=== PATIENT | male | born 1985 | race Caucasian/White ===

== ENCOUNTER 2021-12-01 10:06 | Emergency (ER) | payer MEDICAID, SELFPAY ==
[2021-12-01 10:57] VITALS: BP 136/75; PULSE 53; RESP 15; TEMP 36.7; O2SAT 100; BMI 26.8
--- NOTE | 2021-12-01 11:14 | USR_ITS ---
PROCEDURE INFORMATION: Exam: US Duplex Left Lower Extremity Veins, Limited Exam date and time: 12/01/2021 11:28 AM Age: 36 years old Clinical indication: Pain; Leg, lower; Left; Additional info: Dvt TECHNIQUE: Imaging protocol: Real-time Duplex ultrasound of the Left Lower Extremity with 2-D rodriguez scale, color Doppler flow and spectral waveform analysis with image documentation. Limited exam focused on the left lower extremity veins. COMPARISON: No relevant prior studies available. FINDINGS: Left deep veins: Unremarkable. The common femoral, femoral, proximal profunda femoral and popliteal veins are patent without thrombus. Normal Doppler waveforms. Normal compressibility and/or augmentation response. Left superficial veins: Unremarkable. Saphenofemoral junction is patent without thrombus. Soft tissues: Unremarkable. US/CV venous duplex [facility] [id number] IMPRESSION: No evidence of deep vein thrombosis.
--- NOTE | 2021-12-01 11:15 | ED_ITS ---
HPI - Extremity Problem General: Chief complaint: Extremity Problem,Nontraumatic Stated complaint: left leg pain Time Seen by Provider: 12/01/21 11:10 History of Present Illness: 36-year-old presents with left lower extremity pain. States this been ongoing for a week. States that he has aching pain from the calf down. Denies any focal numbness weakness or tingling. Denies any fever or rash. Does state that recently had some blisters on his left foot treated with antibiotic but that area started bothering him. Denies any warmth or fever. Denies any chest pain or shortness of breath. Review of Systems Narrative: - CONSTITUTIONAL: Denies weight loss, fever and chills. - HEENT: Denies changes in vision and hearing. - RESPIRATORY: Denies SOB and cough. - CV: Denies palpitations and CP. - GI: Denies abdominal pain, nausea, vomiting and diarrhea. - : Denies dysuria and urinary frequency. - MSK: Denies myalgia and joint pain. - SKIN: Denies rash and pruritus. - NEUROLOGICAL: Denies headache, weakness, numbness and syncope. - PSYCHIATRIC: Denies suicidal ideation [facility] ED [facility]: Social History Smoking and tobacco status: current every day smoker Physical Exam Narrative: EXAM NARRATIVE: - GENERAL: Alert and oriented x 3. No acute distress. Well-nourished. - EYES: EOMI. Anicteric. - HENT: Atraumatic, no C-spine tenderness. Moist mucous membranes. No scleral icterus. No cervical lymphadenopathy. - LUNGS: Clear to auscultation bilaterally. No accessory muscle use. Equal lung sounds bilaterally. No respiratory distress. - CARDIOVASCULAR: Regular rate and rhythm. No murmur. No JVD. - ABDOMEN: Soft, non-tender and non-distended. Negative CVA tenderness bilaterally, no rebound or guarding, negative Burkett sign. No palpable masses. - EXTREMITIES: No edema. Tenderness to left calf. There are healing blisters on the left foot. No crepitus. No warmth or erythema. Extremities ne urovascularly intact. - SKIN: No rashes or lesions. Warm. - NEUROLOGIC: No meningismus or focal neurological deficits. CN II-XII grossly intact. - PSYCHIATRIC: Cooperative. Appropriate mood and affect. Course Vital Signs: Vital signs: Vital Signs Temperature 98.0 F 12/01/21 10:57 Pulse Rate 56 L 12/01/21 11:16 Respiratory Rate 16 12/01/21 11:16 Blood Pressure 141/72 12/01/21 11:16 Pulse Oximetry 100 12/01/21 11:16 MDM - Extremity (Nontraumatic) Medical Decision Making 36-year-old presents with left lower extremity pain. Exam there is no swelling. There are healing blisters on his foot from previous infection for which he is taking Augmentin. However there is no crepitus or signs of deep tissue infection. Ultrasound does not reveal any sign of DVT. Extremity is neurovascularly intact. He denies any chest pain or shortness of breath to suggest PE. At this time I believe patient would be safe for discharge and outpatient follow-up. Return precautions provided. Plan was reviewed with the patient who expressed understanding. Questions answered. Patient will follow up with PCP. Patient discharged in stable condition. Lab Data Radiology Impressions Venous Duplex 12/01/21 11:14 IMPRESSION: No evidence of deep vein thrombosis. Discharge Plan Discharge Patient Disposition: Home Clinical Impression: Acute leg pain Condition: Stable Prescriptions: No Action amoxicillin-pot clavulanate 875-125 mg tablet 1 tab PO BID 10 Days Qty: 20 0RF ciprofloxacin HCl 500 mg tablet 500 mg PO Q12H 10 Days Qty: 20 0RF Discharge Orders: Discharge ED (Routine); Ordered 12/01/21 Ordered By: Byron Partida Patient Instructions: Leg Pain (ED), Opioid Safety Coding Level of Care Code ED Bankman for Ricardo Bush
[2021-12-01 11:16] VITALS: BP 141/72; PULSE 56; RESP 16; O2SAT 100
[2021-12-01] MEDS: acetaminophen 500 mg Tablet PO (11:21)
[2021-12-01 12:16] VITALS: BP 141/72; PULSE 56; RESP 16; O2SAT 100
== END 2021-12-01 12:17 | disposition home or self-care (01) ==
PROVIDERS: Emergency Provider Emergency Medicine
DX: M79.605 Pain in left leg (principal); F17.210 Nicotine dependence, cigarettes, uncomplicated
CPT/HCPCS: 93971; 99284

== ENCOUNTER 2021-12-10 13:44 | Inpatient (IN) | payer MEDICAID, SELFPAY ==
[2021-12-10 13:49] VITALS: BP 158/74; PULSE 67; RESP 16; TEMP 37.1; O2SAT 99; BMI 26.3
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
[2021-12-10 15:44] LABS: Amphetamines Screen Urine Negative (Negative); Barbiturates Screen Urine Negative (Negative); Benzodiazepines Screen Urine Negative (Negative); Cocaine Screen Urine Negative (Negative); Opiate Screen Urine Negative (Negative); PCP Screen Urine Negative (Negative); THC Screen Urine Negative (Negative)
[2021-12-10 16:33] LABS: Basophils # 0.1 10^3/uL (0.0-0.1); Basophils % 0.9 %; Eosinophils # 0.7 10^3/uL (0.0-0.8); Eosinophils % 6.5 %; Hemoglobin 14.5 g/dL (11.7-16.6); Lymphocytes # 2.8 10^3/uL (0.8-4.8); Lymphocytes % 28.2 %; Mean Corpuscular Hemoglobin 31.2 pg (28.0-34.0); Mean Corpuscular Volume 94.6 fl (80-94); Mean Platelet Volume 12.1 fL (7.4-10.4); Monocytes # 0.9 10^3/uL (0.2-0.9); Monocytes % 8.7 %; Neutrophils # 5.52 10^3/uL (1.8-7.7); Neutrophils % 55.2 %; Nucleated Red Blood Cells % 0 %; Platelet Count 220 10^3/cmm (130-400); Red Blood Count 4.65 10^6/uL (4.1-5.3); Red Cell Distribution Width 13.5 % (12.1-15.1)
[2021-12-10 16:43] LABS: Alanine Aminotransferase 67 U/L (0-41); Alkaline Phosphatase 63 IU/L (40-130); Anion Gap 14.5 (5-19); Aspartate Amino Transferase 32 U/L (0-40); Blood Urea Nitrogen 15 mg/dL (6-20); Calcium 8.7 mg/dL (8.5-10.5); Carbon Dioxide 26 mmol/L (22-29); Chloride 102 mmol/L (98-107); Globulin 2.7 g/dL (1.3-4.6); Glomerular Filtration Rate 74.9 mL/min (90-130); Glucose 97 mg/dL (65-115); Osmolality Calculated 287 mOsm/kg (285-295); Potassium 4.5 mmol/L (3.5-5.1); Sodium 138 mmol/L (136-145); Total Bilirubin 0.3 mg/dL (0.15-1.2); Total Protein 6.7 g/dL (6.6-8.7)
[2021-12-10 16:44] LABS: Acetaminophen < 5.0 ug/mL (10-30); Alcohol Level < 10 mg/dL (0-10); Salicylate < 0.3 mg/dL (3-10)
[2021-12-10 17:52] VITALS: BP 131/66; PULSE 62; RESP 16; TEMP 36.7; O2SAT 97
[2021-12-10 18:21] VITALS: BP 155/73; PULSE 70; RESP 16; TEMP 36.7; O2SAT 94
[2021-12-10 19:59] VITALS: BP 156/70; PULSE 66; RESP 20; TEMP 36.5; O2SAT 95
[2021-12-10] MEDS: trazodone 100 mg Tablet PO ×2 (21:51→23:13)
[2021-12-10] MEDS: propranolol 20 mg Tablet PO (21:51)
[2021-12-10] MEDS: buprenorphine-naloxone 4-1 mg Film 0.5 EACH SUBLINGUAL (21:53)
[2021-12-10 22:00] VITALS: BP 156/70; PULSE 66; RESP 20; TEMP 36.5; O2SAT 95
[2021-12-11 06:00] VITALS: BP 146/90; PULSE 61; RESP 20; TEMP 36.9
[2021-12-11] MEDS: lisinopril 20 mg Tablet 40 MG PO (08:24)
[2021-12-11] MEDS: nicotine 2 mg Gum BUCCAL ×2 (08:24→19:44)
[2021-12-11] MEDS: buPROPion XL (24 HR) 300 mg Tablet PO (08:24)
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
[2021-12-11 14:00] VITALS: BP 120/72; PULSE 60; RESP 16; TEMP 36.4; O2SAT 97
[2021-12-11] MEDS: buprenorphine-naloxone 4-1 mg Film 2 EACH SUBLINGUAL (17:05)
[2021-12-11 18:39] VITALS: BP 127/77; PULSE 57; RESP 15; TEMP 36.8; O2SAT 99
[2021-12-11] MEDS: trazodone 100 mg Tablet PO (20:20)
[2021-12-11] MEDS: quetiapine 100 mg Tablet PO (20:21)
[2021-12-12 06:00] VITALS: BP 118/71; PULSE 71; RESP 16; TEMP 36.6; O2SAT 97
[2021-12-12] MEDS: buPROPion XL (24 HR) 300 mg Tablet PO (08:40)
[2021-12-12] MEDS: lisinopril 20 mg Tablet 40 MG PO (08:40)
[2021-12-12] MEDS: buprenorphine-naloxone 4-1 mg Film 2 EACH SUBLINGUAL ×2 (08:41→18:19)
[2021-12-12] MEDS: nicotine 2 mg Gum BUCCAL ×3 (08:42→20:55)
--- NOTE | 2021-12-12 11:26 | W.PM.NPUPNS ---
Subjective NPU Subjective: Patient is 36 year old male with polysubstance abuse including opioids and methamphetamine use admitted after increased irritability, suicidal ideation, anxiety and depressed mood directly from [facility]. The patient reports some depressed mood still but reports improved mood and decreased irritability and improvement in stomach pain with the resumption of Suboxone to 12mg yesterday. Patient had reported average dose of suboxone used at home prior to entry in program was 16-24mg/day and it was reduced to 4mg/day. Patient reports still some sleep continuity disruption. He continues to remain irritable on the milieu with peers and staff. Mental Status Exam MSE Comments: Pleasant cooperative male, appeared his stated age, Mood: depressed Affect: restricted in range, thought process: linear and logical, Alert and oriented to person, place and time. He denied suicidal thoughts with no active plan he denied any homicidal ideation. He did not appear to be responding to internal stimuli. There is no clear evidence of delusional thinking. His attention appeared fair. his concentration was adequate. His insight was limited. his judgment remained poor. His impulse control was poor. Vitals/I&O/Wt Last Vital Signs Temp 98.1 F 12/12/21 19:40 Pulse 71 12/12/21 19:40 Resp 16 12/12/21 19:40 BP 113/88 12/12/21 19:40 Pulse Ox 96 12/12/21 19:40 O2 Del Method 12/12/21 19:40 Data NPU : 12/10/21 16:16 12/10/21 16:16 A&P Assessment and plan (1) Major depressive disorder, recurrent: Status: Acute (2) Anxiety: Status: Acute (3) Suicidal ideation: Status: Acute (4) Opioid dependence: Status: Acute (5) Methamphetamine abuse: Status: Acute Plan The patient is a 36-year-old white male with a history of polysubstance abuse who has been in a intensive rehabilitation facility [facility] but had a significant reduction in his Suboxone over a short period of time leading to increased dysphoria and the emergence of increased agitation and depression. 1. TO-15 on milieu 2. Increase seroquel 200mg at night as adjunct with wellbutrin xl (moved to am) for targeting depression 3. Suboxone 16mg/day 4. Plan to direct transfer back to [facility] when stabilized. Involuntary Hold Information 96 Hour Hold: 96 Hour Involuntary Admission: No Attestations NPU Medical Necessity Statement*: The patient will require psychiatric hospitalization expected to be more than 2 midnights with the likely stay to be approximately 2 to 4 days. 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
[2021-12-12 13:50] VITALS: BP 144/79; PULSE 63; RESP 16; TEMP 36.7; O2SAT 99
[2021-12-12 19:40] VITALS: BP 113/88; PULSE 71; RESP 16; TEMP 36.7; O2SAT 96
[2021-12-12] MEDS: quetiapine 100 mg Tablet 200 MG PO (20:53)
[2021-12-13] MEDS: ibuprofen 600 mg Tablet PO (00:28)
--- NOTE | 2021-12-13 04:01 | PC.NURSE ---
Pt has been in the day room most of this 7a-7p shift. He has been awake and sleeping off/on. Stares at the opposite wall in the day room more than watching TV. About 2144, Pt expressed his belieft that this filing writer and another Pt were talking about me while in the day room. He was advised by the other Pt and myself that we were not talking about him. About 2229, Pt stated to this filing writer that he wanted to file a grievence against this filing writer you are talking about me every time I come up here and you walk away. Pt was redirected that this filing writer was indeed not talking to or about him. Pt sits with a vacant stare while in the day room, believes this filing writer and another Pt are talking about, he is probably responding to internal stimuli. Pt stated around 2329 that he no longer believed this filing writer was talking about him.
--- NOTE | 2021-12-13 05:11 | PC.NURSE ---
New order for Motrin 600mg. Use and effect explained to Pt who said he understood and had used it previously. A note was left for day shift report that Pt is c/o continual pain to R ear for which he had requested Motrin. Should be evaluated for possible early infection which Pt has previously had.
[2021-12-13 06:00] VITALS: RESP 16
[2021-12-13] MEDS: lisinopril 20 mg Tablet 40 MG PO (08:16)
[2021-12-13] MEDS: buPROPion XL (24 HR) 300 mg Tablet PO (08:16)
[2021-12-13] MEDS: buprenorphine-naloxone 4-1 mg Film 2 EACH SUBLINGUAL ×2 (08:16→17:45)
[2021-12-13] MEDS: nicotine 2 mg Gum BUCCAL ×2 (08:46→18:23)
[2021-12-13] MEDS: hyDROXYzine 25 mg Capsule 50 MG PO (10:30)
--- NOTE | 2021-12-13 10:31 | PC.NURSE ---
Rash Patient noted to has slight rash to anterior chest and neck. rash is flat and not raised. Rash is not on face, arms or legs. No difficulty breathing or swallowing, no distress. Patient given hydroxyzine. Will continue to assess in 30 minutes.
--- NOTE | 2021-12-13 12:01 | P.NPUPN_ITS ---
Subjective NPU Subjective: Patient is 36 year old male with polysubstance abuse including opioids and methamphetamine use admitted after increased irritability, suicidal ideation, anxiety and depressed mood directly from [facility] [place]. The patient reports no withdrawal symptoms. He reports improved sleep stating that he was able to sleep throughout the night without interruption. Patient denies feelings of hopelessness. He has been compliant on the milieu> Patient reports no suicidal thoughts or homicidal thoughts. He reports being motivated to return to focusing on addiction. Mental Status Exam MSE Comments: Pleasant cooperative male, appeared his stated age, Mood: better Affect: restricted in range but brighter today thought process: linear and logical. Alert and oriented to person, place and time. He denied suicidal thoughts with no active plan. he denied any homicidal ideation. He did not appear to be responding to internal stimuli. There is no clear evidence of delusional thinking. His attention appeared fair. his concentration was adequate. His insight was limited. his judgment remained improving. His impulse control was improving as well. Vitals/I&O/Wt Last Vital Signs Temp 98.4 F 12/13/21 14:00 Pulse 75 12/13/21 14:00 Resp 12 12/13/21 14:00 BP 158/87 12/13/21 14:00 Pulse Ox 97 12/13/21 14:00 O2 Del Method 12/13/21 14:00 Data NPU : 12/10/21 16:16 12/10/21 16:16 A&P Assessment and plan (1) Major depressive disorder, recurrent: Status: Acute (2) Anxiety: Status: Acute (3) Suicidal ideation: Status: Acute (4) Opioid dependence: Status: Acute (5) Methamphetamine abuse: Status: Acute Plan The patient is a 36-year-old white male with a history of polysubstance abuse who has been in a intensive rehabilitation facility [facility] but had a significant reduction in his Suboxone over a short period of time leading to increased dysphoria and the emergence of increased agitation and depression. 1. TO-15 on milieu 2. Continue seroquel 200mg at night as adjunct with wellbutrin xl 300mg (moved to am) for targeting depression. 3. Suboxone 16mg/day 4. Plan to direct transfer back to [facility] when stabilized. Involuntary Hold Information 96 Hour Hold: 96 Hour Involuntary Admission: No Attestations NPU Medical Necessity Statement*: The patient will require psychiatric hospitalization expected to be more than 2 midnights with the likely stay to be approximately 1-2 days. 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
[2021-12-13] MEDS: diphenhydrAMINE 25 mg Capsule PO ×2 (13:33→17:45)
[2021-12-13 14:00] VITALS: BP 158/87; PULSE 75; RESP 12; TEMP 36.9; O2SAT 97
--- NOTE | 2021-12-13 14:41 | PM.CONSULT ---
Providers/Reason For Consult Consulting Physician/Specialty*: Randall Stanton Reason for Consult*: Rash Requesting Physician: Dr. Smith Attending Physician: Juan Smith MD History of Present Illness History of Present Illness Xavier Santos is a 36 year old male admitted to the neuropsychiatric unit for suicidal ideation and substance use. He was at [facility] most recently. He reports he had a rash that started while at [facility]. It is all over his body, chest, back, neck. It is more sparing of his face, legs, feet. He reports it itches. It has been going on for over 5 days. He states he recently took amoxicillin, and Bactrim for concerns of an infection in his feet. However, it appears Cipro and Augmentin were given on [address] Lopez. He denies any fever currently. He reports a rash is perhaps a little bit better than it was. Review of Systems General: Reports: 10 or more systems reviewed and unremarkable except in HPI and below Const: Denies: fever(s) or chills Eyes: Denies: change in vision ENMT: Denies: throat pain Card: Denies: chest pain Resp: Denies: dyspnea GI: Denies: abdominal pain : Denies: flank pain Musc: Denies: neck pain Skin/Breast: Reports: rash and pruritus Neuro: Denies: headache(s) Psych: Denies: anxiety or depression Endo: Denies: polyuria Kt/Lymph: Denies: easy bruising All/Imm: Denies: urticaria Medications/Allergies Home Medications Medication Instructions Recorded Confirmed Last Taken Type buprenorphine 2 mg-naloxone 0.5 mg 1 tab sublingual BID 12/10/21 12/10/21 Unknown History sublingual tablet bupropion HCl 300 mg 24 hr tablet, 300 mg PO BEDTIME 12/10/21 12/10/21 Unknown History extended release lisinopril 40 mg tablet 40 mg PO DAILY 12/10/21 12/10/21 Unknown History propranolol 20 mg tablet 20 mg PO TID PRN Anxiety 12/10/21 12/10/21 12/09/21 History trazodone 100 mg tablet 100 - 200 mg PO BEDTIME PRN Sleep 12/10/21 12/10/21 12/09/21 History Allergies Allergy/AdvReac Type Severity Reaction Status Date / Time Penicillins Allergy Mild ALGY-Rash Verified 12/13/21 14:53 bacrrim Allergy Mild ALGY-Rash Uncoded 12/13/21 14:53 Current Medications Generic Name Dose Route Start Last Admin Trade Name Jonatan PRN Reason Stop Dose Admin Buprenorphine/Naloxone 2 each 12/11/21 18:00 12/13/21 08:16 Buprenorphine-Naloxone 4-1 Mg Film SUBLINGUAL 2 each BID TATIANA Administration Bupropion HCl 300 mg 12/11/21 09:00 12/13/21 08:16 Bupropion Xl (24 Hr) 300 Mg Tablet PO 300 mg DAILY TATIANA Administration Diphenhydramine HCl 25 mg 12/13/21 13:19 12/13/21 13:33 Diphenhydramine 25 Mg Capsule PO 25 mg Q4H PRN Administration ITCHING Hydroxyzine Pamoate 50 mg 12/10/21 18:21 12/13/21 10:30 Hydroxyzine 25 Mg Capsule PO 50 mg Q6H PRN Administration ANXIETY Ibuprofen 600 mg 12/13/21 00:15 12/13/21 00:28 Ibuprofen 600 Mg Tablet PO 600 mg Q6H PRN Administration MODERATE PAIN Lisinopril 40 mg 12/11/21 09:00 12/13/21 08:16 Lisinopril 20 Mg Tablet PO 40 mg DAILY TATIANA Administration Nicotine Polacrilex 2 mg 12/10/21 18:21 12/13/21 08:46 Nicotine 2 Mg Gum BUCCAL 2 mg Q2H PRN Administration NICOTINE WITHDRAWAL Propranolol HCl 20 mg 12/10/21 20:18 12/10/21 21:51 Propranolol 20 Mg Tablet PO 20 mg TID PRN Administration Anxiety Quetiapine Fumarate 200 mg 12/12/21 21:00 12/12/21 20:53 Quetiapine 100 Mg Tablet PO 200 mg BEDTIME TATIANA Administration Trazodone HCl 100 mg 12/10/21 20:18 12/11/21 20:20 Trazodone 100 Mg Tablet PO 100 mg BEDTIME PRN Administration Sleep PFSH Acute PFSH: Medical History (Updated 12/13/21 @ 14:50 by Randall Thapa MD) Hypertension Methamphetamine abuse Opioid dependence Social History (Updated 12/13/21 @ 14:49 by Randall Thapa MD) Smoking and tobacco status: current every day smoker Alcohol intake: current Substance/Drug Use: current Vitals/I&O/Wt Last Vital Signs Temp 98.4 F 12/13/21 14:00 Pulse 75 12/13/21 14:00 Resp 12 12/13/21 14:00 BP 158/87 12/13/21 14:00 Pulse Ox 97 12/13/21 14:00 O2 Del Method 12/13/21 14:00 Physical Exam Narrative: General exam is a white male, no distress Skin demonstrates erythematous papules with some evidence of excoriation most prominent on his anterior chest and abdomen. They are present to a smaller degree on his back, face, neck. Lower legs are mainly spared. There are no lesions in the intertriginous areas, feet, ankles. A blister that was present on the right heel appears to be without infection. Neuro no obvious focal deficits HEENT: Atraumatic normocephalic oropharynx clear Neck is supple no lymphadenopathy thyromegaly Cardiovascular regular rate and rhythm without murmur Lungs clear Abdomen is soft with positive bowel sounds. No obvious organomegaly exam is deferred Extremities no cyanosis clubbing or edema. Data : 12/10/21 16:16 12/10/21 16:16 A&P Assessment and plan (1) Rash: This is most likely a drug eruption. He is most recently been on Augmentin and Cipro. He may have been on Bactrim. At this point we will list allergies to penicillin and sulfa as it is the safest thing to do in this scenario. Doubt fluoroquinolone allergy. Benadryl as needed for itching Triamcinolone twice daily to areas of rash that have most significant reaction There is no evidence of Melo-Tobi reaction Status: Acute Plan Avoid penicillin products and sulfa products currently. Benadryl, triamcinolone as above as needed Please call for any worsening of the rash, need for follow-up visitation. Thank you for this consultation. Consult Attestations Medical Necessity Statement: As per primary Coding Level of Care Code Acute Destination Coordinator for Ricardo Bush Diagnoses Rash R21
[2021-12-13] MEDS: triamcinolone 0.1% cream 15 gm 1 APPLIC TOPICAL (15:03)
--- NOTE | 2021-12-13 17:45 | PC.NURSE ---
PRN BENADRYL 25 MG GIVEN PO PER PT C/O ITCHING/RASH
[2021-12-13 20:37] VITALS: BP 157/75; PULSE 93; RESP 18; O2SAT 97
[2021-12-13] MEDS: quetiapine 100 mg Tablet 200 MG PO (20:55)
[2021-12-14 05:48] VITALS: BP 127/73; PULSE 75; RESP 16; TEMP 36.6; O2SAT 98
[2021-12-14] MEDS: buprenorphine-naloxone 4-1 mg Film 2 EACH SUBLINGUAL (08:25)
[2021-12-14] MEDS: lisinopril 20 mg Tablet 40 MG PO (08:25)
[2021-12-14] MEDS: buPROPion XL (24 HR) 300 mg Tablet PO (08:25)
[2021-12-14] MEDS: triamcinolone 0.1% cream 15 gm 1 APPLIC TOPICAL (08:26)
[2021-12-14] MEDS: ondansetron 4 MG Tablet PO (08:27)
[2021-12-14] MEDS: nicotine 2 mg Gum BUCCAL (08:30)
[2021-12-14 09:05] VITALS: BP 127/73; PULSE 75; RESP 16; TEMP 36.6; O2SAT 98
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
== END 2021-12-14 11:05 | disposition home or self-care (01) | DRG 885 ==
LOC: ER 14:46 → NP 18:03
PROVIDERS: Admitting Provider Psychiatry & Neurology Psychiatry; Emergency Provider Physician Assistant; Visit Provider Psychiatry & Neurology Psychiatry
DX: F33.9 Major depressive disorder, recurrent, unspecified (principal); R45.851 Suicidal ideations; F11.23 Opioid dependence with withdrawal; F41.9 Anxiety disorder, unspecified; F15.10 Other stimulant abuse, uncomplicated; F19.10 Other psychoactive substance abuse, uncomplicated; R45.4 Irritability and anger; R45.1 Restlessness and agitation; L27.0 Generalized skin eruption due to drugs and medicaments taken internally; T36.8X5A Adverse effect of other systemic antibiotics, initial encounter; T36.0X5A Adverse effect of penicillins, initial encounter; T36.1X5A Adverse effect of cephalosporins and other beta-lactam antibiotics, initial encounter; I10 Essential (primary) hypertension; F17.210 Nicotine dependence, cigarettes, uncomplicated; Z62.810 Personal history of physical and sexual abuse in childhood; Z91.52 Personal history of nonsuicidal self-harm
CPT/HCPCS: 80053; 80306; 80307; 85025; 97150; 97165; 99285; J0573; Q0162

== ENCOUNTER 2021-12-19 08:18 | Emergency (ER) | payer MEDICAID, SELFPAY ==
[2021-12-19] VITALS (15 sets, daily range): BP systolic 123–155; BP diastolic 6–99; PULSE 59–62; RESP 15–18; TEMP 36.9–37.6; O2SAT 97–99; BMI 28.0
--- NOTE | 2021-12-19 09:08 | CT_ITS ---
WS: [id number] CT NECK WITH CONTRAST HISTORY: left face swelling and pain TECHNIQUE: Contiguous 5 mm axial images are performed through the neck with intravenous contrast. Sag ittal and coronal reformats are also submitted. All CT scans at [facility] use at least one o f these dose optimization techniques: automated exposure control; mA and/or kV adjustment per patient size (includes targeted exams where dose is matched to clinical indication); or iterative reconstruc tion. CONTRAST: CONTRAST: Omnipaque 350; 80 mL IV. DLP: 263.75 mGy.cm COMPARISON: None available. Mild increased enhancement involving the LEFT auricle. The enhancement extends anterior superficially along the zygomatic arch and along the LEFT mandible. Focal enhancement extends from the superficial parotid gland beneath the LEFT mandibular condyle into the rental coordinator space. There is nodular enhanc ement along the expected location of the mandibular nerve and retromandibular vein. This may represen t a partial thrombophlebitis. Enhancement extends between the parapharyngeal space and the rental coordinator space with enhancement extending into the anterior rental coordinator space. Enhancing nodule measures 7 mm in the superficial tail of the parotid gland. Mild prominence of the LEFT parapharyngeal soft tissues but no discrete mass or abscess. The torus tubarius and the eustachian tubes appear patent. There are numerous small cervical chain ly mph nodes. Increased in number but not size. Extensive bilateral dental caries. Some of the inflammation centered over the LEFT maxilla may arise from the extensive dental caries as there is loss of the normal dentition and suspect osteomyelitis. IMPRESSION: 1. Marked abnormal enhancement over the LEFT maxilla and mandible and extends posterior to involve t he LEFT auricle and parotid gland. Nodular enhancement through the region of the retromandibular vein into the rental coordinator space and the parapharyngeal space on the LEFT. This may represent tumor or infe ction. Partial thrombophlebitis of the retromandibular vein should be considered also as an etiology. Recommend evaluation with ENT as this infection may spread rapidly. Close follow-up recommended to a ssure resolution and there is no tumor involvement. 2. Small reactive bilateral cervical chain lymph nodes. 3. Suspect all these changes may have initially started with dental caries involving the LEFT maxill a. There is extensive dental caries and loss of the normal bone suggesting osteomyelitis. Infection s pread to involve the LEFT cranial nerves. Notified KAYLEE Lux at 12/19/2021 10:37 AM.
--- NOTE | 2021-12-19 09:10 | ED_ITS ---
Documented by User: KAYLEE Lux 12/19/21 13:51 HPI - Ear Problem General: Chief complaint: Ear Stated complaint: left ear pain Time Seen by Provider: 12/19/21 08:22 History of Present Illness: Patient is a 36-year-old male that comes to the ED left facial pain and swelling. His symptoms started approximately a week ago and is having pain in his left ear. He was seen by PCP for different complaint approximately 5 days ago but was diagnosed with otitis externa and sent home with a prescription for some eardrops. Over the last couple days he has had pain that went from his left ear and now has progressed into left maxillary and buccal region of face. He has significant swelling of his left cheek of face. Denies any dental pain. Endorses having a fever over the last 24 hours. He had some bloody and clear drainage from left ear this morning. Patient has a history of IV drug use, MRSA and staph. Associated symptoms: Reports ear or mastoid pain (Left ear pain); Denies fever(s), headache(s) or neck pain Review of Systems Const: Denies: fever(s), chills or fatigue Eyes: Denies: change in vision or eye discomfort ENMT: Reports: ear or mastoid pain (Left ear pain) and sinus pain (Left maxillary and buccal swelling and pain); Denies: throat pain, odynophagia, nasal discharge or nasal congestion Card: Denies: chest pain, palpitations, edema, swelling of feet/ankles, dyspnea on exertion or orthopnea Resp: Denies: dyspnea, productive cough or non-productive cough GI: Denies: abdominal pain, nausea, vomiting, diarrhea, constipation or hematochezia : Denies: flank pain, difficulty urinating, dysuria or hematuria Musc: Denies: neck pain, back pain or extremity swelling Skin/Breast: Denies: rash or new lesions Neuro: Denies: headache(s), numbness in extremities or weakness in extremities PFSH ED PFSH: Medical History Hypertension Methamphetamine abuse No pertinent family history Opioid dependence Social History Smoking and tobacco status: current every day smoker Alcohol intake: current Physical Exam Const: COMMON NORMALS: patient oriented x3 and alert GENERAL APPEARANCE: cooperative HENMT: COMMON NORMALS: normocephalic HEAD & SCALP: normocephalic FACE & SINUS: edema on the left maxilla and Facial tenderness on exam of face and sinuses on the left maxilla EXTERNAL AUDITORY CANAL: Abnormal EAC present EAC laterality: left Details: erythema and EAC tenderness MOUTH: Normal oral and palatal mucosa present THROAT: posterior oropharynx normal and uvula midline Neck/C-Spine: COMMON NORMALS: supple GENERAL: Yes normal visual inspection Resp: COMMON NORMALS: normal respiratory effort, No retractions, No use of accessory muscles and clear to auscultation bilaterally AUSCULTATION: clear to auscultation bilaterally Cardio: COMMON NORMALS: regular rate, regular rhythm, S1 normal heart sound present, S2 normal heart sound present, No gallops present (Cardio), No clicks present (Cardio), No murmurs present (Cardio) and Peripheral pulses 2+ throughout RATE: regular rate RHYTHM: regular rhythm HEART SOUNDS: S1 normal heart sound present and S2 normal heart sound present PERIPHERAL PULSES: Peripheral pulses 2+ throughout GI: COMMON NORMALS: Normal to inspection, nondistended, normoactive bowel sounds present, Soft to palpation, non-tender and no masses PALPATION: Yes Soft to palpation : COMMON NORMALS: Yes no CVA tenderness BLADDER/KIDNEY EXAM: Yes no CVA tenderness Back/Pelvis: COMMON NORMALS: no CVA tenderness Extremity: COMMON NORMALS: normal to inspection Neuro: COMMON NORMALS: patient oriented x3 SENSORIUM/ORIENTATION: Yes alert GAIT: Yes Normal gait present Skin: GENERAL SKIN EXAM: dry skin Course Consultations: Consultation #1: I contacted Dr. Carreon nutritional health coach and told outpatient case he thought patient needed to be admitted and put on IV antibiotics, but he was unable to have patient admitted here at [facility] since Dr. Carreon is currently unable to perform any surgeries because he had a recent hand surgery and is recovering from that. He thought patient needs to be transferred to a facility with a ENT that is available for surgeries. Vital Signs: Vital signs: Vital Signs Temperature 98.5 F 12/19/21 13:56 Pulse Rate 59 L 12/19/21 13:56 Respiratory Rate 18 12/19/21 13:56 Blood Pressure 144/80 12/19/21 13:56 Pulse Oximetry 99 12/19/21 13:56 Oxygen Delivery Me thod 12/19/21 13:56 MDM - Ear Medical Decision Making Patient is a 36-year-old male comes to the ED with left ear and left face pain. Patient has a history of IV drug use, MRSA and staph infections. Ear pain started a week ago and he was put on some Ciprodex eardrops by PCP a couple days ago. Last day he developed significant swelling on left side of face. Vitals are stable patient is afebrile. Exam shows a nontoxic-appearing patient. He does have significant swelling on the left maxillary region face along with tenderness there. Otitis externa in the left ear. White blood cell count of 22.8. CT of neck showed Marked abnormal enhancement over the LEFT maxilla and mandible and extends posterior to involve the LEFT auricle and parotid gland. Nodular enhancement through the region of the retromandibular vein into the real estate economist space and the parapharyngeal space on the LEFT. This may represent tumor or infection. Partial thrombophlebitis of the retromandibular vein should be considered also as an etiology. Recommend evaluation with ENT as this infection may spread rapidly. I contacted Dr. Carreon and he said patient needs to be admitted but will have to be transferred because he is unavailable to do any surgeries due to his current health. I talk with Dr. Richard and he spoke with [facility] in [place] and patient will be transferred there for further care. Lab Data I reviewed the patient's lab results. : 12/19/21 09:23 12/19/21 09:23 Laboratory Results WBC 22.8 10^3/uL (4.0-10.0) H 12/19/21 09:23 RBC 4.72 10^6/uL (4.1-5.3) 12/19/21 09:23 Hgb 14.8 g/dL (11.7-16.6) 12/19/21 09:23 Hct 44.8 % (42.0-52.0) 12/19/21 09:23 MCV 94.9 fl (80-94) H 12/19/21 09:23 MCH 31.4 pg (28.0-34.0) 12/19/21 09: MCHC 33.0 g/dL (30.0-36.0) 12/19/21 09: RDW 13.1 % (12.1-15.1) 12/19/21 09:23 Plt Count 220 10^3/cmm (130-400) 12/19/21 09:23 MPV 12.0 fL (7.4-10.4) H 12/19/21 09:23 Neut % (Auto) 81.4 % 12/19/21 09:23 Lymph % (Auto) 7.9 % 12/19/21 09:23 [place] % (Auto) 8.0 % 12/19/21 09:23 Eos % (Auto) 1.3 % 12/19/21 09:23 Baso % (Auto) 0.3 % 12/19/21 09:23 Neut # (Auto) 18.57 10^3/uL (1.8-7.7) H 12/19/21 09:23 Lymph # (Auto) 1.8 10^3/uL (0.8-4.8) 12/19/21 09:23 [place] # (Auto) 1.8 10^3/uL (0.2-0.9) H 12/19/21 09:23 Eos # (Auto) 0.3 10^3/uL (0.0-0.8) 12/19/21 09:23 Baso # (Auto) 0.1 10^3/uL (0.0-0.1) 12/19/21 09:23 Nucleated RBC % (auto) 0 % 12/19/21 09: Nucleated RBCs # 0.0 /100WBC 12/19/21 09:23 Sodium 137 mmol/L (136-145) 12/19/21 09:23 Potassium 4.5 mmol/L (3.5-5.1) 12/19/21 09:23 Chloride 103 mmol/L (98-107) 12/19/21 09:23 Carbon Dioxide 24 mmol/L (22-29) 12/19/21 09:23 Anion Gap 14.5 (5-19) 12/19/21 09:23 BUN 17 mg/dL (6-20) 12/19/21 09:23 Creatinine 0.9 mg/dL (0.7-1.2) 12/19/21 09:23 GFR Calculation 94.4 mL/min (90-130) 12/19/21 09:23 Glucose 98 mg/dL (65-115) 12/19/21 09:23 Calculated Osmolality 286 mOsm/kg (285-295) 12/19/21 09:23 Calcium 9.0 mg/dL (8.5-10.5) 12/19/21 09:23 Total Bilirubin 0.3 mg/dL (0.15-1.2) 12/19/21 09:23 AST 19 U/L (0-40) 12/19/21 09:23 ALT 34 U/L (0-41) 12/19/21 09:23 Alkaline Phosphatase 87 IU/L (40-130) 12/19/21 09:23 Total Protein 7.1 g/dL (6.6-8.7) 12/19/21 09:23 Albumin 3.9 g/dL (3.5-5.2) 12/19/21 09:23 Globulin 3.2 g/dL (1.3-4.6) 12/19/21 09:23 Discharge Plan Discharge Patient Disposition: Xfer Short-Term Hosp Clinical Impression: Mass of parapharyngeal space, Abscess of parotid masseteric region of face Condition: Stable Coding Level of Care Code ED Wet Wash Assembler for Chg Fwd Exam Comprehensive Documented by User: Deanna Richard MD 12/19/21 14:14 HPI - Ear Problem General: Chief complaint: Ear Stated complaint: left ear pain Time Seen by Provider: 12/19/21 08:22 [facility] ED PFSH: Medical History Hypertension Methamphetamine abuse No pertinent family history Opioid dependence Social History Smoking and tobacco status: current every day smoker Alcohol intake: current Course Vital Signs: Vital signs: Vital Signs Temperature 98.5 F 12/19/21 13:56 Pulse Rate 59 L 12/19/21 13:56 Respiratory Rate 18 12/19/21 13:56 Blood Pressure 144/80 12/19/21 13:56 Pulse Oximetry 99 12/19/21 13:56 Oxygen Delivery Me thod 12/19/21 13:56 MDM - Ear Medical Decision Making Patient is a 36-year-old male comes to the ED with left ear and left face pain. Patient has a history of IV drug use, MRSA and staph infections. Ear pain started a week ago and he was put on some Ciprodex eardrops by PCP a couple days ago. Last day he developed significant swelling on left side of face. Vitals are stable patient is afebrile. Exam shows a nontoxic-appearing patient. He does have significant swelling on the left maxillary region face along with tenderness there. Otitis externa in the left ear. White blood cell count of 22.8. CT of neck showed Marked abnormal enhancement over the LEFT maxilla and mandible and extends posterior to involve the LEFT auricle and parotid gland. Nodular enhancement through the region of the retromandibular vein into the real estate economist space and the parapharyngeal space on the LEFT. This may represent tumor or infection. Partial thrombophlebitis of the retromandibular vein should be considered also as an etiology. Recommend evaluation with ENT as this infection may spread rapidly. I contacted Dr. Carreon and he said patient needs to be admitted but will have to be transferred because he is unavailable to do any surgeries due to his current health. I talk with Dr. Richard and he spoke with [facility] in [place] and patient will be transferred there for further care. Patient presents here with deep space infection left side of neck and male I saw patient with above midlevel I spoke to ENT along with physician at [facility] will transfer there for higher level of care we do not have ENT coverage at this time we did speak to Dr. Carreon who had a surgery states recently and he is unable to operate if this patient would need operation so will transfer at this time. Lab Data : 12/19/21 09:23 12/19/21 09:23 Laboratory Results WBC 22.8 10^3/uL (4.0-10.0) H 12/19/21 09:23 RBC 4.72 10^6/uL (4.1-5.3) 12/19/21 09:23 Hgb 14.8 g/dL (11.7-16.6) 12/19/21 09:23 Hct 44.8 % (42.0-52.0) 12/19/21 09: MCV 94.9 fl (80-94) H 12/19/21 09:23 MCH 31.4 pg (28.0-34.0) 12/19/21 09: MCHC 33.0 g/dL (30.0-36.0) 12/19/21 09: RDW 13.1 % (12.1-15.1) 12/19/21 09: Plt Count 220 10^3/cmm (130-400) 12/19/21 09:23 MPV 12.0 fL (7.4-10.4) H 12/19/21 09:23 Neut % (Auto) 81.4 % 12/19/21 09: Lymph % (Auto) 7.9 % 12/19/21 09: [place] % (Auto) 8.0 % 12/19/21 09: Eos % (Auto) 1.3 % 12/19/21 09: Baso % (Auto) 0.3 % 12/19/21 09:23 Neut # (Auto) 18.57 10^3/uL (1.8-7.7) H 12/19/21 09:23 Lymph # (Auto) 1.8 10^3/uL (0.8-4.8) 12/19/21 09: [place] # (Auto) 1.8 10^3/uL (0.2-0.9) H 12/19/21 09:23 Eos # (Auto) 0.3 10^3/uL (0.0-0.8) 12/19/21 09: Baso # (Auto) 0.1 10^3/uL (0.0-0.1) 12/19/21 09: Nucleated RBC % (auto) 0 % 12/19/21: Nucleated RBCs # 0.0 /100WBC 12/19/21 09: Sodium 137 mmol/L (136-145) 12/19/21 09:23 Potassium 4.5 mmol/L (3.5-5.1) 12/19/21 09: Chloride 103 mmol/L (98-107) 12/19/21 09: Carbon Dioxide 24 mmol/L (22-29) 12/19/21 09:23 Anion Gap 14.5 (5-19) 12/19/21 09:23 BUN 17 mg/dL (6-20) 12/19/21 09:23 Creatinine 0.9 mg/dL (0.7-1.2) 12/19/21 09:23 GFR Calculation 94.4 mL/min (90-130) 12/19/21 09:23 Glucose 98 mg/dL (65-115) 12/19/21 09:23 Calculated Osmolality 286 mOsm/kg (285-295) 12/19/21 09:23 Calcium 9.0 mg/dL (8.5-10.5) 12/19/21 09:23 Total Bilirubin 0.3 mg/dL (0.15-1.2) 12/19/21 09:23 AST 19 U/L (0-40) 12/19/21 09:23 ALT 34 U/L (0-41) 12/19/21 09:23 Alkaline Phosphatase 87 IU/L (40-130) 12/19/21 09:23 Total Protein 7.1 g/dL (6.6-8.7) 12/19/21 09:23 Albumin 3.9 g/dL (3.5-5.2) 12/19/21 09:23 Globulin 3.2 g/dL (1.3-4.6) 12/19/21 09:23 Discharge Plan Discharge Patient Disposition: Xfer Short-Term Hosp Clinical Impression: Mass of parapharyngeal space, Abscess of parotid masseteric region of face Condition: Stable Coding Level of Care Code ED Wet Wash Assembler for Chg Fwd Exam Comprehensive
[2021-12-19] MEDS: morphine 4 mg/mL SDV 1 mL IVP ×2 (09:20→11:26)
[2021-12-19] MEDS: ondansetron 2 mg/ML SDV 2 mL 4 MG IVP (09:21)
[2021-12-19 09:41] LABS: Basophils # 0.1 10^3/uL (0.0-0.1); Basophils % 0.3 %; Eosinophils # 0.3 10^3/uL (0.0-0.8); Eosinophils % 1.3 %; Hematocrit 44.8 % (42.0-52.0); Hemoglobin 14.8 g/dL (11.7-16.6); Lymphocytes # 1.8 10^3/uL (0.8-4.8); Lymphocytes % 7.9 %; Mean Corpuscular Hemoglobin 31.4 pg (28.0-34.0); Mean Corpuscular Volume 94.9 fl (80-94); Monocytes # 1.8 10^3/uL (0.2-0.9); Neutrophils # 18.57 10^3/uL (1.8-7.7); Neutrophils % 81.4 %; Nucleated Red Blood Cells % 0 %; Platelet Count 220 10^3/cmm (130-400); Red Blood Count 4.72 10^6/uL (4.1-5.3); Red Cell Distribution Width 13.1 % (12.1-15.1); White Blood Count 22.8 10^3/uL (4.0-10.0)
[2021-12-19 10:05] LABS: Alanine Aminotransferase 34 U/L (0-41); Albumin Level 3.9 g/dL (3.5-5.2); Alkaline Phosphatase 87 IU/L (40-130); Anion Gap 14.5 (5-19); Aspartate Amino Transferase 19 U/L (0-40); Blood Urea Nitrogen 17 mg/dL (6-20); Carbon Dioxide 24 mmol/L (22-29); Chloride 103 mmol/L (98-107); Globulin 3.2 g/dL (1.3-4.6); Glomerular Filtration Rate 94.4 mL/min (90-130); Glucose 98 mg/dL (65-115); Osmolality Calculated 286 mOsm/kg (285-295); Potassium 4.5 mmol/L (3.5-5.1); Sodium 137 mmol/L (136-145); Total Bilirubin 0.3 mg/dL (0.15-1.2); Total Protein 7.1 g/dL (6.6-8.7)
[2021-12-19] MEDS: cefTRIAXone 1,000 MG in sodium chloride 0.9% (plus) 50 ML 100 MG IV (10:43)
[2021-12-19] MEDS: HYDROmorphone 1 mg/mL INJ 1 mL IVP (13:53)
[2021-12-19] MEDS: nicotine 14 mg Patch 1 PATCH TRANSDERMA (13:54)
--- NOTE | 2021-12-19 15:23 | PC.NURSE ---
Report called to [facility] given to Easton Ordonez RN. All questions answered.
[2021-12-19] MEDS: midazolam 1 mg/mL INJ 2 mL IV (17:33)
== END 2021-12-19 17:54 | disposition short-term general hospital (02) ==
PROVIDERS: Physician Assistant; Emergency Provider Emergency Medicine
DX: L02.01 Cutaneous abscess of face (principal); J39.2 Other diseases of pharynx; I10 Essential (primary) hypertension; F17.210 Nicotine dependence, cigarettes, uncomplicated
CPT/HCPCS: 70491; 80053; 85025; 96365; 96375; 96376; 99285; J0696; J1170; J2250; J2270; J2405; Q9967

== ENCOUNTER → 2021-12-30 16:15 | Outpatient (BNVA) | payer MEDICAID, SELFPAY | PROVIDERS: Visit Provider Internal Medicine | DX: B19.20 Unspecified viral hepatitis C without hepatic coma (principal); R76.8 Other specified abnormal immunological findings in serum; B18.2 Chronic viral hepatitis C | CPT/HCPCS: 86705; 86706; 87340; 87522; 87902 ==